=== PATIENT | male | born 1955 | race Caucasian/White ===

== ENCOUNTER 2021-08-01 05:32 | Day surgery (SDC) | payer BC, OTHER ==
[2021-08-01] MEDS ORDERED: Lactated Ringers 1,000 ML IV SCH (06:30)
[2021-08-01] MEDS ORDERED: Nozin Nasal Sanitizer NASBOTH ONE (06:30)
[2021-08-01] MEDS ORDERED: Bupivacaine 0.5% 50 ML MDV ONE (06:32)
[2021-08-01] MEDS ORDERED: Midazolam 1 MG/ML 2 ML SDV ONE (07:20)
[2021-08-01] MEDS ORDERED: fentaNYL 100 MCG/2 ML SDV ONE ×2 (07:20→07:59)
[2021-08-01] MEDS ORDERED: Dexamethasone 4 MG/ML SDV ONE (07:21)
[2021-08-01] MEDS ORDERED: Propofol 200 MG/20 ML SDV ONE (07:21)
[2021-08-01] MEDS ORDERED: Ondansetron 4 MG/2 ML SDV ONE (07:21)
[2021-08-01] MEDS ORDERED: ceFAZolin 2 GM in Premix Bag 1 BAG IV ONE (07:30)
[2021-08-01] MEDS ORDERED: ceFAZolin 1 GM in Premix Bag 1 BAG IV ONE (07:30)
[2021-08-01] MEDS ORDERED: Ketorolac 30 MG/ML SDV ONE (08:13)
[2021-08-01] MEDS ORDERED: Bupivacaine 0.5% 50 ML MDV INJECT ONE ×2 (08:17)
[2021-08-01] MEDS ORDERED: Acetaminophen/HYDROcodone 325-5 MG Tab PO ONE (10:11)
--- NOTE | 2021-08-13 04:16 | OR ---
DATE OF PROCEDURE: 08/01/2021 SURGEON: Alexei Carrington MD PREOPERATIVE DIAGNOSIS: Medial meniscus tear, left knee. POSTOPERATIVE DIAGNOSES: 1. Medial meniscus tear, left knee, radial tear posterior horn. 2. Chondromalacia medial femoral condyle, grade 3 and chondromalacia patellofemoral joint, grade 2, early grade 3. ANESTHESIA: General. INDICATIONS: Loi is a 65-year-old gentleman with a history of progressive left knee pain. Examination and imaging consistent with complex tear of the medial meniscus. The pain is progressed to difficulty with weightbearing and use of a crutch and he now presents for arthroscopic partial medial meniscectomy. Risks, benefits, and potential complications of the procedure were discussed. DESCRIPTION OF PROCEDURE: After adequate anesthesia was obtained, the patient was placed supine with a tourniquet about the left upper thigh. Left leg was prepped and draped in a sterile fashion. Leg was exsanguinated and tourniquet inflated to 300 mmHg pressure. Standard inferior and medial lateral portals were established. The patellofemoral joint was inspected, which revealed primarily some grade 2 changes throughout the trochlea and dome of the patella with some early grade 3 fissuring with no full-thickness defects or significant chondral flaps. Medial compartment showed grade 3 changes of the medial femoral condyle and grade 2 changes of the tibial plateau. A complex radial tear of the posterior horn was identified. This was debrided back to a stable margin using a combination of a punch basket and shaver. Some very minor debridement of the tibial plateau and femoral condyle was done removing some small loose articular flaps. ACL and PCL were intact. Lateral compartment showed intact meniscus and no significant degenerative changes of the femoral condyle. All loose fragments were removed. The knee was drained. Port sites were closed with 3-0 Monocryl and Steri-Strips were applied. The port sites knee were infiltrated with 0.5% Marcaine and a sterile dressing was placed. The patient tolerated the procedure well. There were no complications. Taken from the operating room in stable condition. Alexei Carrington MD /[id number]
== END 2021-08-01 11:05 | disposition home or self-care (01) ==
LOC: JP.SDS 05:32
PROVIDERS: ATTEND Specialist
DX: S83.232A Complex tear of medial meniscus, current injury, left knee, initial encounter (principal); M94.262 Chondromalacia, left knee
CPT/HCPCS: 36415; 80053; 85027; A9270-GY; J0690; J1100; J1885; J2250; J2405; J2704; J3010; J3490; J7120

== ENCOUNTER 2022-01-21 12:00 | Day surgery (SDC) | payer BC, OTHER ==
[~2022-01-21 12:00] MED LIST: Dextrose 5%-Lactated Ringers 1,000 ML IV SCH
[2022-01-21] MEDS ORDERED: Propofol 200 MG/20 ML SDV ONE ×2 (12:32→12:59)
[2022-01-21] MEDS ORDERED: Midazolam 1 MG/ML 2 ML SDV ONE (12:32)
[2022-01-21] MEDS ORDERED: fentaNYL 100 MCG/2 ML SDV ONE (12:32)
== END 2022-01-21 14:00 | disposition home or self-care (01) ==
LOC: JP.SDS 12:00
PROVIDERS: ATTEND Surgery
DX: Z12.11 Encounter for screening for malignant neoplasm of colon (principal); K64.9 Unspecified hemorrhoids; K62.1 Rectal polyp
CPT/HCPCS: 88305; J2250; J2704; J3010; J7121